=== PATIENT | male | born 1990 | race Caucasian/White ===

== ENCOUNTER 2017-11-29 10:59 | Emergency (ER) | payer BC, OTHER ==
[2017-11-29] MEDS ORDERED: Dexamethasone 10 MG/ML VIAL ONE (12:06)
== END 2017-11-29 12:10 | disposition home or self-care (01) ==
LOC: SCSER 10:59
DX: J06.9 Acute upper respiratory infection, unspecified (principal)
CPT/HCPCS: 99283; J1100

== ENCOUNTER 2017-12-28 04:34 | Emergency (ER) | payer OTHER | END 2017-12-28 04:52 | disposition home or self-care (01) | LOC: SCSER 04:34 | DX: J06.9 Acute upper respiratory infection, unspecified (principal); H66.92 Otitis media, unspecified, left ear | CPT/HCPCS: 99283 ==

== ENCOUNTER 2023-07-13 10:32 | Outpatient (CLI) | payer BC ==
[2023-07-13 11:45] LABS: #Basophils 0.1 10x3/uL (0.0-0.2); #Eosinphils 0.1 10x3/uL (0.0-0.5); #Monocytes 0.4 10x3/uL (0.0-1.1); #Neutrophils 3.7 10x3/uL (1.5-8.4); %Basophils 0.7 % (0.0-2.0); %Eosinophils 0.9 % (0.0-6.0); %Lymphocytes 39.6 % (18.0-47.0); %Monocytes 5.4 % (0.0-10.0); %Neutrophils 52.7 % (40.0-75.0); Hematocrit 46.9 % (38.8-50.0); Hemoglobin 16.2 g/dL (13.5-17.5); Mean Corpuscular HGB CONC 34.5 g/dL (32.0-36.0); Mean Corpuscular Hemoglobin 31.3 pg (27.0-33.0); Mean Corpuscular Volume 90.5 fl (81.2-95.1); Mean Platelet Volume 9.1 fl (7.4-10.4); Platelet Count 319 10x3/uL (150-450); RBC Distribution Width 12.1 % (11.5-14.5); Red Blood Cell (RBC) Count 5.18 10x6/uL (4.32-5.72); White Blood Cell (WBC) Count 7.1 10x3/uL (3.5-10.5)
[2023-07-13 12:06] LABS: Anion Gap 16 mmol/L (10-20); BUN (Urea Nitrogen) 10 mg/dL (8.9-20.6); Calc. Creatinine Clearance 0 mL/min (70-130); Calcium 9.8 mg/dL (7.8-10.44); Carbon Dioxide 25 mmol/L (22-29); Chloride 104 mmol/L (98-107); Estimated GFR 117; Glucose 64 mg/dL (70-105); Potassium 4.3 mmol/L (3.5-5.1); Sodium 141 mmol/L (136-145)
== END 2023-07-13 10:33 | disposition home or self-care (01) ==
LOC: LABBT 10:32
PROVIDERS: ATTEND Surgery
DX: Z01.812 Encounter for preprocedural laboratory examination (principal); K40.90 Unilateral inguinal hernia, without obstruction or gangrene, not specified as recurrent
CPT/HCPCS: 80048; 85025

== ENCOUNTER 2023-07-18 10:14 | Day surgery (SDC) | payer BC ==
[2023-07-13 11:06] VITALS: BMI 24.0
[2023-07-18] MEDS ORDERED: EPINEPHrine 1 MG/ML AMP ONE (12:18)
[2023-07-18] MEDS ORDERED: Bupivacaine 0.25% HCL 30 ML VIAL ONE (12:18)
[2023-07-18] MEDS ORDERED: fentaNYL PF 100 MCG/2 ML SYRINGE ONE (12:20)
[2023-07-18] MEDS ORDERED: SUGAMMADEX SODIUM 200 MG/2 ML VIAL ONE (12:20)
[2023-07-18] MEDS ORDERED: Midazolam HCl 2 mg/2 ml Vial ONE (12:33)
[2023-07-18] MEDS ORDERED: CEFAZOLIN 2 GM VIAL ONE (12:38)
[2023-07-18] MEDS ORDERED: Sodium Chloride 0.9% 100 ML ONE (12:38)
[2023-07-18] MEDS ORDERED: Ketorolac Tromethamine 30 MG/ML VIAL ONE (12:47)
[2023-07-18] MEDS ORDERED: Rocuronium Bromide 10 MG/ML (10ML VIAL) ONE (12:47)
[2023-07-18] MEDS ORDERED: Dexamethasone 20 MG/5 ML VIAL ONE (12:47)
[2023-07-18] MEDS ORDERED: Ondansetron PF 4 MG/2 ML Vial ONE (12:47)
[2023-07-18] MEDS ORDERED: PROPOFOL 200 MG/20 ML VIAL ONE (12:47)
[2023-07-18] MEDS ORDERED: Lidocaine 1% PF 5 ML VIAL ONE (12:47)
[2023-07-18] MEDS ORDERED: Glycopyrrolate 0.2 MG/ML 5 ML SYRINGE ONE (12:47)
[2023-07-18] MEDS ORDERED: NEOSTIGMINE 3 MG/3 ML SYR 3 MG/3 ML SYRINGE ONE (12:47)
== END 2023-07-18 16:44 | disposition home or self-care (01) ==
LOC: SDC 10:14
PROVIDERS: ATTEND Surgery
PROC: 0YUA4JZ Supplement Bilateral Inguinal Region with Synthetic Substitute, Percutaneous Endoscopic Approach (ICD-10-PCS; principal; 2023-07-18)
DX: K40.20 Bilateral inguinal hernia, without obstruction or gangrene, not specified as recurrent (principal); Z87.891 Personal history of nicotine dependence
CPT/HCPCS: A4314; C1781; J0171; J1100; J1885; J2250; J2405; J2704; J3490; S0020